=== PATIENT | male | born 1990 | race American Indian/Alaskan Native ===

== ENCOUNTER 2017-11-15 22:18 | Emergency (ER) | payer SELFPAY ==
[2017-11-15 22:37] VITALS: BP 145/97
[2017-11-15] MEDS ORDERED: MOTRIN PO ONE ×2 (22:38)
[2017-11-16] MEDS ORDERED: NORCO 5/325 PO ONE (03:57)
--- NOTE | 2017-11-16 04:02 | Emergency Department Report ---
ED ENT HPI - General Chief complaint: Dental/Oral Stated complaint: MOUTH PAIN RIGHT SIDE Time Seen by Provider: 11/16/17 03:57 Source: patient Mode of arrival: Ambulatory Limitations: No Limitations - History of Present Illness Initial comments: This is a 27-year-old male presents with right side tooth pain that started yesterday morning. Patient reports having a similar pain and lower right side of mouth a couple months ago and he was applying Orajel to tooth which resolved pain. He thought pain had went away but when he woke up yesterday morning he couldn't barely eat breakfast due to pain. Patient reports pain is now on right upper and right lower side of mouth. He is taking [id number] insidious with no improvement of symptoms. Denies difficulty swallowing, drooling, fever, headache, discharge, and recent trauma. MD complaint: tooth pain -: days(s) (1 day) Location: tooth # (#3) Severity: severe Severity scale (0 -10): 10 Quality: aching, sharp, constant Consistency: constant Improves with: none Worsens with: eating Context- Dental: history of dental caries, poor dental care Associated Symptoms: gum swelling, toothache. denies: fever, cough, pain with swallowing, sore throat, tinnitus, hearing loss, discharge from ear, rhinorrhea - Related Data Previous Rx's Medication Instructions Recorded Last Taken Type Clindamycin [Clindamycin CAP] 300 mg PO Q8H 7 Days #21 cap 11/16/17 Unknown Rx traMADol [Ultram 50 MG tab] 50 mg PO Q6HR PRN #15 tablet 11/16/17 Unknown Rx Allergies Allergy/AdvReac Type Severity Reaction Status Date / Time No Known Allergies Allergy Verified 11/15/17 22:43 ED Dental HPI - General Chief complaint: Dental/Oral Stated complaint: MOUTH PAIN RIGHT SIDE Time Seen by Provider: 11/16/17 03:57 Source: patient Mode of arrival: Ambulatory Limitations: No Limitations - Related Data Previous Rx's Medication Instructions Recorded Last Taken Type Clindamycin [Clindamycin CAP] 300 mg PO Q8H 7 Days #21 cap 11/16/17 Unknown Rx traMADol [Ultram 50 MG tab] 50 mg PO Q6HR PRN #15 tablet 11/16/17 Unknown Rx Allergies Allergy/AdvReac Type Severity Reaction Status Date / Time No Known Allergies Allergy Verified 11/15/17 22:43 ED Review of Systems ROS: Stated complaint: MOUTH PAIN RIGHT SIDE Other details as noted in HPI Constitutional: denies: chills, fever ENT: dental pain. denies: ear pain, throat pain, congestion Respiratory: denies: cough, shortness of breath, wheezing Cardiovascular: denies: chest pain, palpitations Gastrointestinal: denies: abdominal pain, nausea, diarrhea Neurological: denies: headache, weakness, paresthesias Psychiatric: denies: anxiety, depression ED Past Medical Hx - Past Medical History Previous Medical History?: No - Surgical History Additional Surgical History: TONSILS - Social History Smoking Status: Heavy Tobacco Smoker Substance Use Type: None - Medications Home Medications: Home Medications Medication Instructions Recorded Confirmed Last Taken Type Clindamycin [Clindamycin CAP] 300 mg PO Q8H 7 Days #21 cap 11/16/17 Unknown Rx traMADol [Ultram 50 MG tab] 50 mg PO Q6HR PRN #15 tablet 11/16/17 Unknown Rx ED Physical Exam - General Limitations: No Limitations General appearance: alert, in no apparent distress - ENT ENT exam: Present: mucous membranes moist, other (#3 black tooth discoloration, dental caries surrounding mucosal swelling) - Respiratory Respiratory exam: Present: normal lung sounds bilaterally. Absent: respiratory distress - Cardiovascular Cardiovascular Exam: Present: regular rate, normal rhythm, normal heart sounds. Absent: systolic murmur, diastolic murmur, rubs, gallop - GI/Abdominal GI/Abdominal exam: Present: soft, normal bowel sounds - Neurological Exam Neurological exam: Present: alert, oriented X3, normal gait - Psychiatric Psychiatric exam: Present: normal affect, normal mood - Skin Skin exam: Present: warm, dry, intact, normal color. Absent: rash ED Course Vital Signs 11/15/17 22:33 Temperature 99 F Pulse Rate 102 H Respiratory 18 Rate Blood Pressure 145/97 O2 Sat by Pulse 94 Oximetry ED Medical Decision Making - Medical Decision Making This is a 27-year-old male presents with right side tooth pain that started yesterday. Patient is stable and was examined by me. Given norco and ibuprofen once in ER. Susceptible of dental caries. Discharged home with clindamycin and tramadol. Discussed plan with patient. He agreed with ER plan. Follow up with dentist. Critical care attestation.: If time is entered above; I have spent that time in minutes in the direct care of this critically ill patient, excluding procedure time. ED Disposition Clinical Impression: Dental caries, Tooth ache Disposition: - TO HOME OR SELFCARE Is pt being admited?: No Does the pt Need Aspirin: No Condition: Stable Instructions: Dental Caries (ED), Toothache (ED) Additional Instructions: Complete all days of clindamycin as prescribed for 14 days. Follow up with Dentist in 24-72 hours. Prescriptions: Clindamycin [Clindamycin CAP] 300 mg PO Q8H 7 Days #21 cap traMADol [Ultram 50 MG tab] 50 mg PO Q6HR PRN #15 tablet PRN Reason: Pain Referrals: [facility] [Outside] - 3-5 Days [facility] [Outside] - 3-5 Days [facility] [Outside] - 3-5 Days [facility] [Outside] - 3-[address] [facility] [Outside] - 3-5 Days Time of Disposition: 04:09 Print Language: SYRIAN
[2017-11-16] MEDS ORDERED: NORCO 5/325 ONE (04:13)
== END 2017-11-16 04:31 | disposition home or self-care (01) ==
LOC: ED 22:18
DX: K02.9 Dental caries, unspecified (principal); F17.200 Nicotine dependence, unspecified, uncomplicated
CPT/HCPCS: 99282